=== PATIENT | female | born 1940 | race Caucasian/White ===

== ENCOUNTER 2022-09-26 09:03 | Outpatient (CLI) | payer MEDICARE, BC, SELFPAY | END 2022-09-26 09:04 | disposition home or self-care (01) | LOC: NFLDREF 09-27 15:11 | PROVIDERS: PCP Family Medicine; Referring Provider Family Medicine; Visit Provider Nurse Practitioner Family | DX: R30.0 Dysuria (principal); N30.00 Acute cystitis without hematuria | CPT/HCPCS: 87086 ==